=== PATIENT | male | born 1945 | race Caucasian/White ===

== ENCOUNTER 2020-12-30 12:00 | Emergency (ER) | payer BC, OTHER ==
[~2020-12-30] VITALS: Ht 177.8 cm; Wt 106.6 kg
[2020-12-30 13:48] LABS: Basophils # (auto) 0.1 10 ^3/uL (0-0.2); Basophils % (auto) 0.9 % (0.0-2.0); Eosinophils # (auto) 0.1 10 ^3/uL (0-0.8); Eosinophils % (auto) 1.4 % (0.0-7.0); Hematocrit 48.8 % (41.0-53.0); Hemoglobin 15.8 g/dL (13.5-17.5); Lymphocytes # (auto) 0.5 10 ^3/uL (0.4-5.4); Lymphocytes % (auto) 9.5 % (10.0-50.0); Mean Corpuscular Hemoglobin 30.8 pg (28.0-32.0); Mean Corpuscular Hgb Conc. 32.4 g/dL (32.0-36.0); Mean Corpuscular Volume 95.3 fL (80.0-100.0); Monocytes # (auto) 0.4 10 ^3/uL (0-1.3); Monocytes % (auto) 7.4 % (0.0-12.0); Neutrophils # (auto) 4.5 10 ^3/uL (1.6-8.6); Neutrophils % (auto) 80.8 % (37.0-80.0); Red Blood Cells 5.13 10^6/uL (4.5-5.90); Red Cell Distribution Width 14.3 % (11.8-14.3); White Blood Cell 5.5 10^3/uL (4.4-10.8)
[2020-12-30 13:49] LABS: Albumin 3.2 g/dL (3.4-5.0); Anion Gap 7 (5-15); Blood Urea Nitrogen 29 mg/dL (7-18); Calcium 8.3 mg/dL (8.5-10.1); Carbon Dioxide 26 mmol/L (21-32); Chloride 107 mmol/L (98-107); Glucose 102 mg/dL (74-106); Potassium 3.9 mmol/L (3.5-5.1); Sodium 140 mmol/L (136-145)
[2020-12-30 13:54] LABS: Alanine Aminotransferase 16 U/L (16-61); Alkaline Phosphatase 144 U/L (45-117); Aspartate Aminotransferase 13 U/L (15-37); BUN/Creatinine Ratio 22.7; GFR African American 71 mL/min; GFR Non-African American 58 mL/min; Total Protein 7.3 g/dL (6.4-8.2)
[2020-12-30] MEDS ORDERED: IOHEXOL 350 MG/ML 100ML IJ ONE ×2 (15:08→15:15)
[2020-12-30 18:24] VITALS: BP 147/77
== END 2020-12-30 19:00 | disposition home or self-care (01) ==
LOC: EDUNIT# 12:00 → EDBD 12:00 → ER 12:00
DX: I48.91 Unspecified atrial fibrillation (principal); E46 Unspecified protein-calorie malnutrition; I11.0 Hypertensive heart disease with heart failure; I50.9 Heart failure, unspecified; E11.9 Type 2 diabetes mellitus without complications; I25.10 Atherosclerotic heart disease of native coronary artery without angina pectoris; E03.9 Hypothyroidism, unspecified; Z68.33 Body mass index [BMI] 33.0-33.9, adult
CPT/HCPCS: 36415; 70450; 71045; 71275; 80053; 83880; 84484; 85025; 93005; 99291; Q9967

== ENCOUNTER 2022-03-08 08:10 | Inpatient (IN) | payer OTHER ==
[~2022-03-08] VITALS: Ht 182.9 cm; Wt 89.3 kg
[2022-03-08] MEDS ORDERED: METOPROLOL TARTRATE 1MG/1ML-5ML VIAL IV ONE (08:30)
[2022-03-08] MEDS ORDERED: FUROSEMIDE 40 MG/4 ML VIAL IV ONE (08:30)
[2022-03-08] MEDS ORDERED: ASPirin 81 mg TAB PO ONE ×2 (08:30→12:15)
[2022-03-08 08:49] LABS: Basophils # (auto) 0.1 10 ^3/uL (0-0.2); Nucleated Red Blood Cells % 0.1 %; Red Blood Cells 5.19 10^6/uL (4.5-5.90)
[2022-03-08 08:52] LABS: Basophils % (auto) 1.1 % (0.0-2.0); Eosinophils # (auto) 0.2 10 ^3/uL (0-0.8); Eosinophils % (auto) 1.2 % (0.0-7.0); Hematocrit 42.9 % (41.0-53.0); Hemoglobin 13.9 g/dL (13.5-17.5); Lymphocytes # (auto) 1.3 10 ^3/uL (0.4-5.4); Lymphocytes % (auto) 10.4 % (10.0-50.0); Mean Corpuscular Hemoglobin 26.7 pg (28.0-32.0); Mean Corpuscular Hgb Conc. 32.3 g/dL (32.0-36.0); Mean Corpuscular Volume 82.6 fL (80.0-100.0); Monocytes % (auto) 7.6 % (0.0-12.0); Neutrophils # (auto) 10.3 10 ^3/uL (1.6-8.6); Neutrophils % (auto) 79.7 % (37.0-80.0); Red Cell Distribution Width 17.5 % (11.8-14.3); White Blood Cell 12.9 10^3/uL (4.4-10.8)
[2022-03-08] MEDS ORDERED: levoFLOXacin 500MG 100 ML IV ONE (09:00)
[2022-03-08] MEDS ORDERED: methylPREDNISolone SOD SUCC 125 MG/2 ML VL IV ONE (09:00)
[2022-03-08 09:03] LABS: INR 1.09 (0.9-1.15); Partial Thromboplastin Time 32.8 sec (24.6-33.4)
[2022-03-08 10:26] LABS: Albumin 3.6 g/dL (3.4-5.0); Calcium 8.7 mg/dL (8.5-10.1); Magnesium 2.4 mg/dL (1.6-2.6); Potassium 4.3 mmol/L (3.5-5.1)
[2022-03-08 10:29] LABS: Lactic Acid w/Reflex 2.4 mmol/L (0.4-2.0)
[2022-03-08 10:30] LABS: BUN/Creatinine Ratio 27.9; Bilirubin, Total 0.5 mg/dL (0.2-1.0); Total Protein 7.7 g/dL (6.4-8.2)
[2022-03-08] MEDS ORDERED: ALBUTEROL SULF 2.5 MG/0.5ML(0.5%) NEB SOLN NEB PRN (11:30)
[2022-03-08] MEDS ORDERED: MORPHINE SULFATE 4 MG/ML SYR/VIAL IV PRN (11:30)
[2022-03-08] MEDS ORDERED: NITROGLYCERIN 0.4 MG SL TAB SL PRN (11:30)
[2022-03-08] MEDS ORDERED: ONDANSETRON HCL 4 MG/2 ML VIAL IV PRN (11:30)
[2022-03-08] MEDS ORDERED: ACETAMINOPHEN 325 MG TAB PO PRN (11:30)
[2022-03-08 12:46] LABS: Urine Bacteria NONE SEEN /hpf (None Seen); Urine Blood Negative /uL (Negative); Urine Hyaline Cast FEW /lpf (0 - 2); Urine Mucus FEW (None Seen); Urine Specific Gravity 1.008 (1.001-1.035); Urine WBC <1 /hpf (0 - 3)
[2022-03-08 14:01] VITALS: BP 124/85
[2022-03-08] MEDS ORDERED: ALL100T PO (15:20)
[2022-03-08] MEDS ORDERED: AMIO200T33 PO (15:20)
[2022-03-08] MEDS ORDERED: METO25TA93 PO (15:30)
[2022-03-08] MEDS ORDERED: CITA-73 PO (15:30)
[2022-03-08] MEDS ORDERED: BUPR150T18 PO (15:30)
[2022-03-08] MEDS ORDERED: LEVO200I5 IV (15:30)
[2022-03-08] MEDS ORDERED: FURO40TA4 PO (15:31)
[2022-03-08] MEDS ORDERED: AMIODARONE HCL 150 MG in D5W 5% 100 ML IV ONE (16:15)
[2022-03-08] MEDS ORDERED: AMIODARONE 450mg/250ml AE 250 ML IV SCH (16:30)
[2022-03-08] MEDS ORDERED: LEVOTHYROXINE SODIUM 100 MCG TAB PO ONE (17:15)
[2022-03-08] MEDS ORDERED: ATORVASTATIN 20 MG TAB PO ONE (17:15)
[2022-03-08] MEDS ORDERED: HEPARIN SODIUM (PORCINE) 5000 UNITS/ML 1ML VIAL IV ONE (17:30)
[2022-03-08] MEDS ORDERED: HEPARIN DRIP/D5W 100UNITS/ML 250 ML IV SCH (17:31)
[2022-03-08 18:31] LABS: Basophils # (auto) 0 10 ^3/uL (0-0.2); Eosinophils # (auto) 0.1 10 ^3/uL (0-0.8); Eosinophils % (auto) 1.5 % (0.0-7.0); Hematocrit 41.5 % (41.0-53.0); Hemoglobin 13.3 g/dL (13.5-17.5); Lymphocytes # (auto) 0.3 10 ^3/uL (0.4-5.4); Lymphocytes % (auto) 4.4 % (10.0-50.0); Mean Corpuscular Hemoglobin 26.6 pg (28.0-32.0); Mean Corpuscular Volume 82.9 fL (80.0-100.0); Monocytes # (auto) 0.1 10 ^3/uL (0-1.3); Neutrophils # (auto) 7.1 10 ^3/uL (1.6-8.6); Neutrophils % (auto) 93.1 % (37.0-80.0); Red Blood Cells 5.01 10^6/uL (4.5-5.90); Red Cell Distribution Width 17.6 % (11.8-14.3); White Blood Cell 7.7 10^3/uL (4.4-10.8)
[2022-03-08 18:59] LABS: INR 1.54 (0.9-1.15)
[2022-03-08 19:06] LABS: Partial Thromboplastin Time > 139.0 sec (24.6-33.4)
[2022-03-08] MEDS ORDERED: ENOXAPARIN SOD 100 MG/1 ML SYRINGE SC SCH (22:00)
[2022-03-08] MEDS: METOPROLOL TARTRATE 25 MG TAB PO SCH (22:15)
[2022-03-08] MEDS: ATORVASTATIN 20 MG TAB PO SCH (22:15)
[2022-03-08] MEDS: AMIODARONE 450mg/250ml AE 250 ML IV SCH (22:45)
[2022-03-09 01:53] LABS: INR 1.13 (0.9-1.15); Partial Thromboplastin Time 39.7 sec (24.6-33.4)
[2022-03-09 05:30] LABS: Eosinophils # (auto) 0 10 ^3/uL (0-0.8); Lymphocytes # (auto) 0.5 10 ^3/uL (0.4-5.4); Mean Corpuscular Volume 81.9 fL (80.0-100.0); Monocytes # (auto) 0.4 10 ^3/uL (0-1.3)
[2022-03-09 05:32] LABS: Basophils # (auto) 0 10 ^3/uL (0-0.2); Basophils % (auto) 0.2 % (0.0-2.0); Hematocrit 42.1 % (41.0-53.0); Hemoglobin 13.5 g/dL (13.5-17.5); Lymphocytes % (auto) 3.9 % (10.0-50.0); Mean Corpuscular Hemoglobin 26.2 pg (28.0-32.0); Monocytes % (auto) 2.8 % (0.0-12.0); Neutrophils # (auto) 12.4 10 ^3/uL (1.6-8.6); Neutrophils % (auto) 93.1 % (37.0-80.0); Red Blood Cells 5.14 10^6/uL (4.5-5.90); Red Cell Distribution Width 17.3 % (11.8-14.3); White Blood Cell 13.3 10^3/uL (4.4-10.8)
[2022-03-09 05:39] LABS: BUN/Creatinine Ratio 28.1; Potassium 4.1 mmol/L (3.5-5.1)
[2022-03-09] MEDS ORDERED: LEVOTHYROXINE SODIUM 100 MCG TAB PO SCH (07:00)
[2022-03-09] MEDS: BUPROPION HCL PO SCH (09:16)
[2022-03-09 09:27] LABS: INR 1.1 (0.9-1.15)
[2022-03-09] MEDS ORDERED: levoFLOXacin 500MG 100 ML IV SCH (10:00)
[2022-03-09] MEDS: ASPirin 81 mg TAB PO SCH (10:00)
[2022-03-09] MEDS: CITALOPRAM HYDROBR 20 MG TAB PO SCH (10:15)
[2022-03-09] MEDS: FUROSEMIDE 20 MG/2 ML VIAL IV SCH (10:15)
[2022-03-09] MEDS: METOPROLOL TARTRATE 25 MG TAB PO SCH ×2 (10:15→22:55)
[2022-03-09] MEDS: DOCUSATE SOD 100 MG CAP PO SCH (10:15)
[2022-03-09] MEDS: ALLOPURINOL 100 MG TAB PO SCH (10:18)
[2022-03-09] MEDS: AMIODARONE 450mg/250ml AE 250 ML IV SCH (14:05)
[2022-03-09 15:07] LABS: INR 1.14 (0.9-1.15); Partial Thromboplastin Time 44.5 sec (24.6-33.4)
[2022-03-09] MEDS: HEPARIN DRIP/D5W 100UNITS/ML 250 ML IV SCH (16:00)
[2022-03-09] MEDS: LORazepam 0.5 MG TAB PO PRN (20:13)
[2022-03-09 21:37] LABS: INR 1.14 (0.9-1.15); Partial Thromboplastin Time 53.2 sec (24.6-33.4)
[2022-03-09] MEDS: ATORVASTATIN 20 MG TAB PO SCH (22:55)
[2022-03-10 03:07] LABS: Basophils # (auto) 0 10 ^3/uL (0-0.2); Eosinophils # (auto) 0 10 ^3/uL (0-0.8)
[2022-03-10 03:15] LABS: Basophils % (auto) 0.3 % (0.0-2.0); Eosinophils % (auto) 0.1 % (0.0-7.0); Mean Corpuscular Volume 82.1 fL (80.0-100.0)
[2022-03-10 03:17] LABS: Hematocrit 40.7 % (41.0-53.0); Hemoglobin 12.9 g/dL (13.5-17.5); Lymphocytes # (auto) 1.1 10 ^3/uL (0.4-5.4); Lymphocytes % (auto) 7.4 % (10.0-50.0); Mean Corpuscular Hgb Conc. 31.6 g/dL (32.0-36.0); Monocytes % (auto) 6.7 % (0.0-12.0); Neutrophils # (auto) 12.7 10 ^3/uL (1.6-8.6); Neutrophils % (auto) 85.5 % (37.0-80.0); Red Blood Cells 4.96 10^6/uL (4.5-5.90); Red Cell Distribution Width 17.5 % (11.8-14.3); White Blood Cell 14.9 10^3/uL (4.4-10.8)
[2022-03-10 03:20] LABS: Calcium 8.6 mg/dL (8.5-10.1); INR 1.16 (0.9-1.15); Partial Thromboplastin Time 55.2 sec (24.6-33.4); Potassium 4.1 mmol/L (3.5-5.1)
[2022-03-10] MEDS: AMIODARONE 450mg/250ml AE 250 ML IV SCH ×2 (04:30→19:30)
[2022-03-10] MEDS: LEVOTHYROXINE SODIUM 100 MCG TAB PO SCH (07:08)
[2022-03-10] MEDS: BUPROPION HCL PO SCH (09:00)
[2022-03-10 09:25] LABS: INR 1.16 (0.9-1.15); Partial Thromboplastin Time 68.6 sec (24.6-33.4)
[2022-03-10] MEDS: ASPirin 81 mg TAB PO SCH (10:00)
[2022-03-10] MEDS: DOCUSATE SOD 100 MG CAP PO SCH (10:41)
[2022-03-10] MEDS: CITALOPRAM HYDROBR 20 MG TAB PO SCH (10:41)
[2022-03-10] MEDS: DOXYCYCLINE 100 MG TAB/CAP PO SCH (10:42)
[2022-03-10] MEDS: ALLOPURINOL 100 MG TAB PO SCH (10:42)
[2022-03-10] MEDS: METOPROLOL TARTRATE 25 MG TAB PO SCH (10:45)
[2022-03-10] MEDS: FUROSEMIDE 20 MG/2 ML VIAL IV SCH (10:45)
[2022-03-10] MEDS: CEFTRIAXONE SODIUM 2 GM in D5W 5% 50 ML IV SCH (12:41)
[2022-03-10] MEDS: HEPARIN DRIP/D5W 100UNITS/ML 250 ML IV SCH (18:29)
[2022-03-11] MEDS: DOXYCYCLINE 100 MG TAB/CAP PO SCH ×3 (00:34→22:35)
[2022-03-11] MEDS: ATORVASTATIN 20 MG TAB PO SCH ×2 (00:34→22:34)
[2022-03-11] MEDS: METOPROLOL TARTRATE 25 MG TAB PO SCH ×3 (00:37→22:34)
[2022-03-11] MEDS: AMIODARONE HCL 200 MG TAB PO SCH ×3 (00:37→22:33)
[2022-03-11] MEDS: HEPARIN DRIP/D5W 100UNITS/ML 250 ML IV SCH (00:57)
[2022-03-11] MEDS: AMIODARONE 450mg/250ml AE 250 ML IV SCH (02:13)
[2022-03-11 06:45] LABS: Basophils # (auto) 0 10 ^3/uL (0-0.2); Eosinophils # (auto) 0.1 10 ^3/uL (0-0.8); Eosinophils % (auto) 0.7 % (0.0-7.0); Lymphocytes # (auto) 0.8 10 ^3/uL (0.4-5.4); Monocytes # (auto) 0.8 10 ^3/uL (0-1.3); Neutrophils # (auto) 8.3 10 ^3/uL (1.6-8.6)
[2022-03-11 06:47] LABS: Basophils % (auto) 0.2 % (0.0-2.0); Hematocrit 42.1 % (41.0-53.0); Hemoglobin 13.3 g/dL (13.5-17.5); Lymphocytes % (auto) 8.4 % (10.0-50.0); Mean Corpuscular Hgb Conc. 31.7 g/dL (32.0-36.0); Mean Corpuscular Volume 81.9 fL (80.0-100.0); Monocytes % (auto) 8.2 % (0.0-12.0); Neutrophils % (auto) 82.5 % (37.0-80.0); Red Blood Cells 5.14 10^6/uL (4.5-5.90); Red Cell Distribution Width 17.7 % (11.8-14.3)
[2022-03-11 06:52] LABS: INR 1.18 (0.9-1.15); Partial Thromboplastin Time 57.9 sec (24.6-33.4)
[2022-03-11 07:45] LABS: Potassium 3.9 mmol/L (3.5-5.1)
[2022-03-11] MEDS: BUPROPION HCL PO SCH (07:45)
[2022-03-11] MEDS: LEVOTHYROXINE SODIUM 100 MCG TAB PO SCH (07:57)
[2022-03-11 08:03] LABS: Albumin 3.1 g/dL (3.4-5.0); BUN/Creatinine Ratio 34.1; Bilirubin, Total 0.7 mg/dL (0.2-1.0); Calcium 8.9 mg/dL (8.5-10.1); Magnesium 2.4 mg/dL (1.6-2.6); Total Protein 7.5 g/dL (6.4-8.2)
[2022-03-11] MEDS: DOCUSATE SOD 100 MG CAP PO SCH (10:03)
[2022-03-11] MEDS: ALLOPURINOL 100 MG TAB PO SCH (10:03)
[2022-03-11] MEDS: CITALOPRAM HYDROBR 20 MG TAB PO SCH (10:03)
[2022-03-11] MEDS: ASPirin 81 mg TAB PO SCH (10:03)
[2022-03-11] MEDS: FUROSEMIDE 20 MG/2 ML VIAL IV SCH (10:04)
[2022-03-11 10:17] VITALS: BP 148/59
[2022-03-11] MEDS: CEFTRIAXONE SODIUM 2 GM in D5W 5% 50 ML IV SCH (10:49)
[2022-03-11 18:18] VITALS: BP 127/66
[2022-03-11 22:00] VITALS: BP 125/62
[2022-03-11] MEDS: LORazepam 0.5 MG TAB PO PRN (22:33)
[2022-03-12 00:30] VITALS: BP 108/66
[2022-03-12 05:00] VITALS: BP 118/67
[2022-03-12] MEDS: BUPROPION HCL PO SCH (07:00)
[2022-03-12] MEDS: LEVOTHYROXINE SODIUM 100 MCG TAB PO SCH (07:00)
[2022-03-12 09:00] VITALS: BP 129/72
[2022-03-12] MEDS: FUROSEMIDE 20 MG/2 ML VIAL IV SCH (09:21)
[2022-03-12] MEDS: DOXYCYCLINE 100 MG TAB/CAP PO SCH (09:22)
[2022-03-12] MEDS: ASPirin 81 mg TAB PO SCH (09:22)
[2022-03-12] MEDS: METOPROLOL TARTRATE 25 MG TAB PO SCH (09:22)
[2022-03-12] MEDS: CEFTRIAXONE SODIUM 2 GM in D5W 5% 50 ML IV SCH (09:22)
[2022-03-12] MEDS: DOCUSATE SOD 100 MG CAP PO SCH (09:23)
[2022-03-12] MEDS: ALLOPURINOL 100 MG TAB PO SCH (09:23)
[2022-03-12] MEDS: CITALOPRAM HYDROBR 20 MG TAB PO SCH (09:23)
[2022-03-12] MEDS: AMIODARONE HCL 200 MG TAB PO SCH (09:23)
[2022-03-12] MEDS ORDERED: LIDOCAINE 2%HCL (LOCAL ANESTH.) INJ 10ml MDV ONE (10:47)
[2022-03-12] MEDS ORDERED: IODIXANOL 320MG/ML 100ML BTL IV ONE (10:47)
[2022-03-12] MEDS ORDERED: ANGIOMAX 250 MG VIAL IV ONE (11:18)
[2022-03-12] MEDS ORDERED: fentaNYL CITRATE 100 MCG/2 ML VL ONE (11:18)
[2022-03-12] MEDS ORDERED: VERAPAMIL 2.5MG/ML INJ 2ML VIAL IV ONE (11:18)
[2022-03-12] MEDS ORDERED: HEPARIN SODIUM (PORCINE) 5000 UNITS/ML 1ML VIAL ONE (11:18)
[2022-03-12] MEDS ORDERED: MIDAZOLAM HCL 2MG/2ML 2ml VIAL (1mg/ml) ONE (11:19)
[2022-03-12] MEDS ORDERED: SODIUM CHL 0.9% 0 ML ONE (11:19)
[2022-03-12] MEDS ORDERED: LEVO200T7 PO (12:47)
[2022-03-12] MEDS ORDERED: APIX5TAB PO (12:47)
[2022-03-12] MEDS ORDERED: MET25T PO (12:47)
[2022-03-12] MEDS ORDERED: DOX100T PO (12:47)
[2022-03-12] MEDS ORDERED: ASPI-325 PO (12:47)
[2022-03-12] MEDS ORDERED: AMIO200T33 PO (12:47)
[2022-03-14] MEDS ORDERED: APIX5TAB PO (08:27)
[2022-03-14] MEDS ORDERED: ERGO1CAP23 PO (14:09)
[2022-03-14] MEDS ORDERED: CYAN1TAB14 PO (14:09)
== END 2022-03-12 15:50 | disposition home or self-care (01) | DRG 871 ==
LOC: ER 08:10 → TELE 11:27 → TELE-CENTR 03-11 17:40
PROVIDERS: ADMIT Nurse Practitioner Family; ATTEND Internal Medicine
PROC: B211YZZ Fluoroscopy of Multiple Coronary Arteries using Other Contrast (ICD-10-PCS; principal; 2022-03-12)
DX: A41.9 Sepsis, unspecified organism (principal); I21.A1 Myocardial infarction type 2; I50.43 Acute on chronic combined systolic (congestive) and diastolic (congestive) heart failure; J96.01 Acute respiratory failure with hypoxia; U07.1 COVID-19; I47.20 Ventricular tachycardia, unspecified; I13.0 Hypertensive heart and chronic kidney disease with heart failure and stage 1 through stage 4 chronic kidney disease, or unspecified chronic kidney disease; N17.9 Acute kidney failure, unspecified; D68.69 Other thrombophilia; I25.10 Atherosclerotic heart disease of native coronary artery without angina pectoris; F32.A Depression, unspecified; M10.9 Gout, unspecified; N18.9 Chronic kidney disease, unspecified; E03.9 Hypothyroidism, unspecified; I48.91 Unspecified atrial fibrillation; E11.22 Type 2 diabetes mellitus with diabetic chronic kidney disease; I25.2 Old myocardial infarction; Z79.899 Other long term (current) drug therapy; Z82.49 Family history of ischemic heart disease and other diseases of the circulatory system; Z83.3 Family history of diabetes mellitus; Z86.711 Personal history of pulmonary embolism; Z98.61 Coronary angioplasty status; Z87.01 Personal history of pneumonia (recurrent)
CPT/HCPCS: 36415; 36600; 71045; 71250; 80048; 80053; 80061; 81001; 82805; 83036; 83605; 83735; 83880; 84100; 84439; 84443; 84484; 85025; 85379; 85610; 85652; 85730; 86141; 87040; 87426; 87804; 93005; 93306; 96374; 96375; 99152; 99291; G0378; J0696; J1956; J2001; J2250; J7060; Q9967

== ENCOUNTER → 2022-04-18 | Outpatient (CLI) | payer OTHER ==
[~2022-04-18] MED LIST: ALL100T PO; AMIO200T33 PO; APIX5TAB PO; ASPI-325 PO; BUPR150T18 PO; CITA-73 PO; CYAN1TAB14 PO; DOX100T PO; ERGO1CAP23 PO; FURO40TA4 PO; LEVO200I5 IV; LEVO200T7 PO; MET25T PO; METO25TA93 PO
[2022-04-18 10:52] LABS: BUN/Creatinine Ratio 24.8; Calcium 8.8 mg/dL (8.5-10.1); Potassium 5.1 mmol/L (3.5-5.1)
== END | disposition home or self-care (01) ==
LOC: LAB 10:16
PROVIDERS: ATTEND Internal Medicine
DX: Z01.818 Encounter for other preprocedural examination (principal); I70.0 Atherosclerosis of aorta; J98.11 Atelectasis; I51.7 Cardiomegaly; R06.02 Shortness of breath
CPT/HCPCS: 36415; 71275; 80048

== ENCOUNTER → 2022-04-25 | Outpatient (CLI) | payer OTHER ==
[2022-04-25 10:51] LABS: Calcium 8.8 mg/dL (8.5-10.1); Potassium 4.6 mmol/L (3.5-5.1)
[2022-04-25 10:55] LABS: BUN/Creatinine Ratio 25.6
[2022-04-25 11:00] LABS: Folate (Folic Acid) 16.84 ng/mL (5.38-24); Prostate Specific Antigen 1.3 ng/mL (0.0-4.0)
[2022-04-26 08:07] LABS: RPR Non Reactive (Non Reactive)
== END | disposition home or self-care (01) ==
LOC: LAB 09:45
PROVIDERS: ATTEND Internal Medicine
DX: E03.9 Hypothyroidism, unspecified (principal)
CPT/HCPCS: 36415; 80048; 82607; 82746; 84153; 86592

== ENCOUNTER → 2022-06-12 | Outpatient (CLI) | payer OTHER ==
[~2022-06-12] MED LIST changes: +ASPI1TAB19 PO; +CITA-77 PO; +CLOP75TA28 PO; +CYAN100056 PO; +LEVO125T7 PO; +LEVO175T66 PO; +POTA10TA51 PO
[2022-06-12 10:26] LABS: Basophils # (auto) 0.1 10 ^3/uL (0-0.2); Eosinophils # (auto) 0.2 10 ^3/uL (0-0.8); Lymphocytes # (auto) 0.8 10 ^3/uL (0.4-5.4); Monocytes # (auto) 0.3 10 ^3/uL (0-1.3); Neutrophils # (auto) 5.2 10 ^3/uL (1.6-8.6); Nucleated Red Blood Cells % 0.2 %; White Blood Cell 6.5 10^3/uL (4.4-10.8)
[2022-06-12 10:29] LABS: Basophils % (auto) 1.3 % (0.0-2.0); Eosinophils % (auto) 2.6 % (0.0-7.0); Hematocrit 40.9 % (41.0-53.0); Lymphocytes % (auto) 11.7 % (10.0-50.0); Mean Corpuscular Hemoglobin 23.7 pg (28.0-32.0); Mean Corpuscular Hgb Conc. 31.7 g/dL (32.0-36.0); Mean Corpuscular Volume 74.6 fL (80.0-100.0); Monocytes % (auto) 4.7 % (0.0-12.0); Neutrophils % (auto) 79.7 % (37.0-80.0); Red Blood Cells 5.48 10^6/uL (4.5-5.90); Red Cell Distribution Width 17.7 % (11.8-14.3)
[2022-06-12 10:34] LABS: INR 1.08 (0.9-1.15); Partial Thromboplastin Time 32.3 sec (24.6-33.4)
[2022-06-12 10:36] LABS: Albumin 3.6 g/dL (3.4-5.0); Calcium 8.8 mg/dL (8.5-10.1); Potassium 4.4 mmol/L (3.5-5.1)
[2022-06-12 10:39] LABS: BUN/Creatinine Ratio 24.3 (10.0-20.0); Bilirubin, Total 0.4 mg/dL (0.2-1.0)
== END | disposition home or self-care (01) ==
LOC: LAB 09:56
PROVIDERS: ATTEND Internal Medicine Cardiovascular Disease
DX: Z01.812 Encounter for preprocedural laboratory examination (principal); R79.1 Abnormal coagulation profile
CPT/HCPCS: 36415; 80053; 85025; 85610; 85730

== ENCOUNTER → 2022-06-12 | Outpatient (CLI) | payer OTHER ==
[2022-06-12 09:05] VITALS: BP 145/70
[2022-06-12 09:24] VITALS: BP 146/70
== END | disposition home or self-care (01) ==
LOC: CHF HDHVI 09:00
PROVIDERS: ATTEND Internal Medicine Cardiovascular Disease
DX: Z01.818 Encounter for other preprocedural examination (principal); R94.31 Abnormal electrocardiogram [ECG] [EKG]; I51.7 Cardiomegaly; R06.02 Shortness of breath; R00.1 Bradycardia, unspecified; I27.21 Secondary pulmonary arterial hypertension
CPT/HCPCS: 93005; G0463

== ENCOUNTER → 2022-06-13 | Day surgery (SDC) | payer OTHER ==
[~2022-06-13] VITALS: Ht 182.9 cm; Wt 86.2 kg
[~2022-06-13] MED LIST changes: +ANGIOMAX 250 MG VIAL IV ONE; +CLOPIDOGREL 300 MG TAB ONE; -LEVO200I5 IV; +LIDOCAINE 2%HCL (LOCAL ANESTH.) INJ 20ML MDV ONE; -MET25T PO; +MIDAZOLAM HCL 2MG/2ML 2ml VIAL (1mg/ml) ONE; +SODIUM CHL 0.9% 0 ML ONE; +fentaNYL CITRATE 100 MCG/2 ML VL ONE
== END | disposition home or self-care (01) ==
LOC: CATH 09:09
PROVIDERS: ATTEND Internal Medicine Cardiovascular Disease
DX: I25.10 Atherosclerotic heart disease of native coronary artery without angina pectoris (principal); I25.5 Ischemic cardiomyopathy; I27.20 Pulmonary hypertension, unspecified; I48.0 Paroxysmal atrial fibrillation; F32.A Depression, unspecified; Z80.9 Family history of malignant neoplasm, unspecified; Z83.6 Family history of other diseases of the respiratory system; Z79.82 Long term (current) use of aspirin; Z79.899 Other long term (current) drug therapy; Z20.822 Contact with and (suspected) exposure to COVID-19
CPT/HCPCS: 93460; C1757; C1769; C1894; J1644; J2250; J3010; J7030; U0003; 99152; 99153

== ENCOUNTER → 2022-07-15 | Outpatient (CLI) | payer OTHER ==
[~2022-07-15] MED LIST changes: -ANGIOMAX 250 MG VIAL IV ONE; -ASPI-325 PO; -CITA-73 PO; -CLOPIDOGREL 300 MG TAB ONE; -CYAN1TAB14 PO; -DOX100T PO; -LEVO125T7 PO; -LEVO200T7 PO; -LIDOCAINE 2%HCL (LOCAL ANESTH.) INJ 20ML MDV ONE; -MIDAZOLAM HCL 2MG/2ML 2ml VIAL (1mg/ml) ONE; -SODIUM CHL 0.9% 0 ML ONE; -fentaNYL CITRATE 100 MCG/2 ML VL ONE
[2022-07-15 08:30] VITALS: BP 130/67
== END | disposition home or self-care (01) ==
LOC: Rad HDHVI 08:15
PROVIDERS: ATTEND Internal Medicine Cardiovascular Disease
DX: I11.0 Hypertensive heart disease with heart failure (principal); I50.22 Chronic systolic (congestive) heart failure; I27.20 Pulmonary hypertension, unspecified; I48.0 Paroxysmal atrial fibrillation; I70.0 Atherosclerosis of aorta
CPT/HCPCS: 71046; G0463

== ENCOUNTER 2022-07-18 06:49 | Day surgery (SDC) | payer OTHER ==
[2022-07-15 09:31] LABS: Eosinophils # (auto) 0.1 10 ^3/uL (0-0.8); Hemoglobin 10.9 g/dL (13.5-17.5); Lymphocytes # (auto) 0.6 10 ^3/uL (0.4-5.4); White Blood Cell 7.3 10^3/uL (4.4-10.8)
[2022-07-15 09:34] LABS: Basophils # (auto) 0 10 ^3/uL (0-0.2); Basophils % (auto) 0.5 % (0.0-2.0); Eosinophils % (auto) 0.9 % (0.0-7.0); Hematocrit 36.5 % (41.0-53.0); Lymphocytes % (auto) 8.3 % (10.0-50.0); Mean Corpuscular Hemoglobin 22.6 pg (28.0-32.0); Mean Corpuscular Volume 75.3 fL (80.0-100.0); Monocytes # (auto) 0.6 10 ^3/uL (0-1.3); Monocytes % (auto) 8.1 % (0.0-12.0); Neutrophils % (auto) 82.2 % (37.0-80.0); Red Blood Cells 4.85 10^6/uL (4.5-5.90)
[2022-07-15 09:43] LABS: INR 1.15 (0.9-1.15); Partial Thromboplastin Time 35.3 sec (24.6-33.4)
[2022-07-15 09:59] LABS: Calcium 8.5 mg/dL (8.5-10.1)
[2022-07-15 10:01] LABS: BUN/Creatinine Ratio 22.6 (10.0-20.0)
[~2022-07-18] VITALS: Ht 182.9 cm; Wt 85.7 kg
[~2022-07-18 06:49] MED LIST changes: -ASPI1TAB19 PO; -CLOP75TA28 PO; -CYAN100056 PO
[2022-07-18] MEDS ORDERED: fentaNYL CITRATE 100 MCG/2 ML VL IV ONE (08:00)
[2022-07-18] MEDS ORDERED: MIDAZOLAM HCL 2MG/2ML 2ml VIAL (1mg/ml) IV ONE (08:00)
[2022-07-18 10:12] VITALS: BP 136/95
== END 2022-07-18 11:25 | disposition home or self-care (01) ==
LOC: CATH 06:49
PROVIDERS: ATTEND Internal Medicine Cardiovascular Disease
DX: I08.0 Rheumatic disorders of both mitral and aortic valves (principal); I48.0 Paroxysmal atrial fibrillation
CPT/HCPCS: 36415; 80048; 85025; 85610; 85730; 93312; J2250; J7030; 99152

== ENCOUNTER → 2022-08-28 | Outpatient (CLI) | payer OTHER ==
[~2022-08-28] MED LIST changes: +LEVO175T4 PO; -LEVO175T66 PO
[2022-08-28 08:11] VITALS: BP 158/74
[2022-08-28 08:27] VITALS: BP 138/63
== END | disposition home or self-care (01) ==
LOC: Rad HDHVI 08:01
PROVIDERS: ATTEND Internal Medicine Cardiovascular Disease
DX: Z01.818 Encounter for other preprocedural examination (principal); I11.0 Hypertensive heart disease with heart failure; I50.23 Acute on chronic systolic (congestive) heart failure; I08.0 Rheumatic disorders of both mitral and aortic valves; I48.91 Unspecified atrial fibrillation
CPT/HCPCS: 71046; 93005; G0463

== ENCOUNTER 2022-08-29 06:51 | Day surgery (SDC) | payer OTHER ==
[2022-08-28 09:36] LABS: INR 1.15 (0.9-1.15); Partial Thromboplastin Time 34.2 sec (24.6-33.4)
[2022-08-28 09:59] LABS: Albumin 3.5 g/dL (3.4-5.0); BUN/Creatinine Ratio 23.4 (10.0-20.0); Calcium 8.6 mg/dL (8.5-10.1)
[2022-08-28 10:02] LABS: Bilirubin, Total 0.5 mg/dL (0.2-1.0); Total Protein 7.3 g/dL (6.4-8.2)
[2022-08-28 12:15] LABS: Basophils # (auto) 0 10 ^3/uL (0-0.2); Basophils % (auto) 0.7 % (0.0-2.0); Hemoglobin 11.4 g/dL (13.5-17.5); Lymphocytes # (auto) 0.8 10 ^3/uL (0.4-5.4); Neutrophils # (auto) 5.3 10 ^3/uL (1.6-8.6)
[2022-08-28 12:17] LABS: Eosinophils # (auto) 0.2 10 ^3/uL (0-0.8); Eosinophils % (auto) 2.2 % (0.0-7.0); Hematocrit 37.9 % (41.0-53.0); Lymphocytes % (auto) 11.5 % (10.0-50.0); Mean Corpuscular Hemoglobin 22.1 pg (28.0-32.0); Mean Corpuscular Hgb Conc. 30.1 g/dL (32.0-36.0); Mean Corpuscular Volume 73.5 fL (80.0-100.0); Monocytes # (auto) 0.5 10 ^3/uL (0-1.3); Monocytes % (auto) 6.8 % (0.0-12.0); Neutrophils % (auto) 78.8 % (37.0-80.0); Nucleated Red Blood Cells % 0.1 %; Red Blood Cells 5.16 10^6/uL (4.5-5.90); Red Cell Distribution Width 18.6 % (11.8-14.3); White Blood Cell 6.7 10^3/uL (4.4-10.8)
[~2022-08-29] VITALS: Ht 182.9 cm; Wt 88.0 kg
[~2022-08-29 06:51] MED LIST changes: -ERGO1CAP23 PO
[2022-08-29] MEDS ORDERED: ANGIOMAX 250 MG VIAL IV ONE ×2 (08:16→10:23)
[2022-08-29] MEDS ORDERED: fentaNYL CITRATE 100 MCG/2 ML VL ONE ×2 (08:17→10:23)
[2022-08-29] MEDS ORDERED: HEPARIN IN NS 1000Units/500mL 1,500 ML ONE (08:18)
[2022-08-29] MEDS ORDERED: IOHEXOL 350 MG/ML 500ML BOTTLE IJ ONE ×2 (08:18→08:19)
[2022-08-29] MEDS ORDERED: SODIUM CHL 0.9% 0 ML ONE (08:18)
[2022-08-29] MEDS ORDERED: MIDAZOLAM HCL 2MG/2ML 2ml VIAL (1mg/ml) ONE ×2 (08:18→10:24)
[2022-08-29] MEDS ORDERED: LIDOCAINE 2%HCL (LOCAL ANESTH.) INJ 20ML MDV ONE (08:19)
[2022-08-29] MEDS ORDERED: IODIXANOL 320MG/ML 100ML BTL IV ONE (09:05)
[2022-08-29] MEDS ORDERED: CLOPIDOGREL 300 MG TAB ONE (09:55)
[2022-08-29] MEDS ORDERED: SODIUM CHL 0.9% 50 ML ONE (10:24)
== END 2022-08-29 11:48 | disposition home or self-care (01) ==
LOC: CATH 06:51
PROVIDERS: ATTEND Internal Medicine Cardiovascular Disease
DX: I25.10 Atherosclerotic heart disease of native coronary artery without angina pectoris (principal); I08.0 Rheumatic disorders of both mitral and aortic valves; I27.20 Pulmonary hypertension, unspecified; I50.1 Left ventricular failure, unspecified; I25.5 Ischemic cardiomyopathy; I48.91 Unspecified atrial fibrillation; Z79.01 Long term (current) use of anticoagulants; Z79.82 Long term (current) use of aspirin; E03.9 Hypothyroidism, unspecified
CPT/HCPCS: 36415; 80053; 85025; 85610; 85730; 92978; 93460; C1725; C1757; C1874; C1887; C1894; C9600; J0583; J1644; J2250; J3010; Q9967; 99152; 99153

== ENCOUNTER → 2022-09-23 | Outpatient (CLI) | payer OTHER ==
[2022-09-23 08:57] VITALS: BP 144/69
[2022-09-23 09:20] VITALS: BP 146/71
== END | disposition home or self-care (01) ==
LOC: Rad HDHVI 08:48
PROVIDERS: ATTEND Internal Medicine Cardiovascular Disease
DX: Z01.818 Encounter for other preprocedural examination (principal); I70.0 Atherosclerosis of aorta; I34.2 Nonrheumatic mitral (valve) stenosis; R06.01 Orthopnea; R07.89 Other chest pain
CPT/HCPCS: 71046; 93005; G0463

== ENCOUNTER 2022-10-05 21:39 | Inpatient (IN) | payer OTHER ==
[~2022-10-05] VITALS: Ht 185.4 cm; Wt 82.8 kg
[~2022-10-05 21:39] MED LIST changes: +ASPI-325 PO; +ATOR20TA50 PO; +CLOP75TA70 NG
[2022-10-05 22:10] VITALS: PULSE 70; RESP 20; O2SAT 96
[2022-10-05 23:07] LABS: Basophils # (auto) 0 10 ^3/uL (0-0.2); Eosinophils # (auto) 0.1 10 ^3/uL (0-0.8); Eosinophils % (auto) 0.7 % (0.0-7.0); Hematocrit 30.9 % (41.0-53.0); Lymphocytes # (auto) 0.5 10 ^3/uL (0.4-5.4)
[2022-10-05 23:09] LABS: Albumin 2.6 g/dL (3.4-5.0); Basophils % (auto) 0.2 % (0.0-2.0); Calcium 7.7 mg/dL (8.5-10.1); Hemoglobin 9.2 g/dL (13.5-17.5); Lymphocytes % (auto) 5.5 % (10.0-50.0); Magnesium 2.6 mg/dL (1.6-2.6); Mean Corpuscular Hemoglobin 21.4 pg (28.0-32.0); Mean Corpuscular Hgb Conc. 29.7 g/dL (32.0-36.0); Mean Corpuscular Volume 72.1 fL (80.0-100.0); Monocytes # (auto) 0.6 10 ^3/uL (0-1.3); Monocytes % (auto) 6.6 % (0.0-12.0); Neutrophils # (auto) 8.3 10 ^3/uL (1.6-8.6); Nucleated Red Blood Cells % 0.3 %; Potassium 3.8 mmol/L (3.5-5.1); Red Blood Cells 4.28 10^6/uL (4.5-5.90); Red Cell Distribution Width 19.5 % (11.8-14.3); White Blood Cell 9.6 10^3/uL (4.4-10.8)
[2022-10-05 23:12] LABS: BUN/Creatinine Ratio 24.7 (10.0-20.0); Bilirubin, Total 0.7 mg/dL (0.2-1.0); Total Protein 5.9 g/dL (6.4-8.2)
[2022-10-06] MEDS ORDERED: ALBUMIN 25% 100 ML IV ONE (01:30)
[2022-10-06] MEDS ORDERED: NITROGLYCERIN 0.4 MG SL TAB SL ONE (01:30)
[2022-10-06] MEDS ORDERED: PANTOPRAZOLE 40 MG/10 ML VIAL INJ IV ONE (01:30)
[2022-10-06] MEDS ORDERED: ONDANSETRON HCL 4 MG/2 ML VIAL IV ONE (01:30)
[2022-10-06] MEDS ORDERED: LORazepam 2MG/ML-1ML VIAL IV ONE (01:30)
[2022-10-06] MEDS ORDERED: FUROSEMIDE 20 MG TAB PO ONE (01:30)
[2022-10-06] MEDS ORDERED: ACETAMINOPHEN 325 MG TAB PO PRN (02:00)
[2022-10-06] MEDS ORDERED: DOCUSATE SOD 100 MG CAP PO PRN (02:00)
[2022-10-06] MEDS ORDERED: ONDANSETRON HCL 4 MG/2 ML VIAL IV PRN (02:00)
[2022-10-06] MEDS ORDERED: NITROGLYCERIN 0.4 MG SL TAB SL PRN (02:15)
[2022-10-06] MEDS ORDERED: MORPHINE SULFATE INJ 2 MG/ml SYRG IV PRN (02:15)
[2022-10-06 02:18] LABS: Eosinophils # (auto) 0.1 10 ^3/uL (0-0.8); Hemoglobin 8.8 g/dL (13.5-17.5); Lymphocytes # (auto) 0.5 10 ^3/uL (0.4-5.4); Red Cell Distribution Width 19.5 % (11.8-14.3); White Blood Cell 8.9 10^3/uL (4.4-10.8)
[2022-10-06 02:21] LABS: Basophils # (auto) 0.1 10 ^3/uL (0-0.2); Basophils % (auto) 0.7 % (0.0-2.0); Eosinophils % (auto) 1.1 % (0.0-7.0); Hematocrit 29.2 % (41.0-53.0); Lymphocytes % (auto) 5.9 % (10.0-50.0); Mean Corpuscular Hemoglobin 21.7 pg (28.0-32.0); Mean Corpuscular Hgb Conc. 30.2 g/dL (32.0-36.0); Mean Corpuscular Volume 71.8 fL (80.0-100.0); Monocytes # (auto) 0.6 10 ^3/uL (0-1.3); Monocytes % (auto) 6.3 % (0.0-12.0); Neutrophils # (auto) 7.7 10 ^3/uL (1.6-8.6); Nucleated Red Blood Cells % 0.3 %; Red Blood Cells 4.07 10^6/uL (4.5-5.90)
[2022-10-06 02:44] LABS: Albumin 2.5 g/dL (3.4-5.0); Calcium 7.5 mg/dL (8.5-10.1); Potassium 3.7 mmol/L (3.5-5.1)
[2022-10-06 02:46] LABS: BUN/Creatinine Ratio 27.7 (10.0-20.0)
[2022-10-06 02:49] LABS: Bilirubin, Total 0.7 mg/dL (0.2-1.0); Total Protein 5.6 g/dL (6.4-8.2)
[2022-10-06] MEDS: SODIUM CHLOR 0.9% PF (SALINE LOCK) 10ML VIAL/SYR IV SCH ×3 (05:46→21:27)
[2022-10-06] MEDS: HYDROcodone-ACET 5/325MG TAB PO PRN (05:50)
[2022-10-06] MEDS: LEVOTHYROXINE SODIUM 50 MCG TAB PO SCH (06:35)
[2022-10-06 07:31] VITALS: PULSE 72; RESP 19; O2SAT 98
[2022-10-06 09:24] LABS: Urine Bacteria NONE SEEN /hpf (None Seen); Urine Blood Negative /uL (Negative); Urine Mucus FEW (None Seen); Urine Specific Gravity 1.021 (1.001-1.035); Urine Sperm PRESENT /hpf (None Seen); Urine WBC 1 /hpf (0 - 3)
[2022-10-06] MEDS: CLOPIDOGREL BISULFATE 75 MG TAB PO SCH (09:28)
[2022-10-06] MEDS: FAMOTIDINE (10MG/ML) 2ML VL IV SCH ×2 (09:28→21:27)
[2022-10-06] MEDS: ASPirin 81 mg TAB PO SCH (09:28)
[2022-10-06] MEDS: FUROSEMIDE 40 MG/4 ML VIAL IV SCH (09:37)
[2022-10-06] MEDS ORDERED: APIXABAN 5 MG TAB PO SCH (10:00)
[2022-10-06] MEDS ORDERED: ALPRAZolam 0.5 MG TAB PO ONE (11:15)
[2022-10-06] MEDS: HALOPERIDOL LACTATE 5 MG/ML INJ VIAL IM PRN ×2 (13:13→20:32)
[2022-10-06] MEDS: ATORVASTATIN 20 MG TAB PO SCH (21:28)
[2022-10-06] MEDS ORDERED: ATORVASTATIN 20 MG TAB PO SCH (22:00)
[2022-10-07] VITALS (8 sets, daily range): BP systolic 107–144; BP diastolic 61–79; PULSE 61–86; RESP 12–21; TEMP 97.4–98; O2SAT 92–99
[2022-10-07] MEDS: HYDROcodone-ACET 5/325MG TAB PO PRN (01:16)
[2022-10-07] MEDS: SODIUM CHLOR 0.9% PF (SALINE LOCK) 10ML VIAL/SYR IV SCH (05:39)
[2022-10-07 06:04] LABS: Basophils # (auto) 0 10 ^3/uL (0-0.2); Basophils % (auto) 0.2 % (0.0-2.0); Eosinophils # (auto) 0.1 10 ^3/uL (0-0.8); Eosinophils % (auto) 0.9 % (0.0-7.0); Hematocrit 32.2 % (41.0-53.0); Hemoglobin 9.4 g/dL (13.5-17.5); Lymphocytes # (auto) 0.9 10 ^3/uL (0.4-5.4); Lymphocytes % (auto) 8.5 % (10.0-50.0); Mean Corpuscular Hemoglobin 21.5 pg (28.0-32.0); Mean Corpuscular Volume 74.1 fL (80.0-100.0); Monocytes # (auto) 0.6 10 ^3/uL (0-1.3); Monocytes % (auto) 5.9 % (0.0-12.0); Neutrophils # (auto) 8.9 10 ^3/uL (1.6-8.6); Neutrophils % (auto) 84.5 % (37.0-80.0); Nucleated Red Blood Cells % 0.2 %; Red Blood Cells 4.35 10^6/uL (4.5-5.90); Red Cell Distribution Width 19.6 % (11.8-14.3); White Blood Cell 10.5 10^3/uL (4.4-10.8)
[2022-10-07] MEDS: LEVOTHYROXINE SODIUM 50 MCG TAB PO SCH (06:10)
[2022-10-07 06:25] LABS: Potassium 3.7 mmol/L (3.5-5.1)
[2022-10-07 06:30] LABS: BUN/Creatinine Ratio 26.4 (10.0-20.0); Bilirubin, Total 1.1 mg/dL (0.2-1.0); Calcium 7.9 mg/dL (8.5-10.1); Total Protein 6.5 g/dL (6.4-8.2)
[2022-10-07] MEDS ORDERED: buPROPion HCL 75 MG TAB PO SCH ×2 (07:00)
[2022-10-07] MEDS: FUROSEMIDE 40 MG/4 ML VIAL IV SCH (10:02)
[2022-10-07] MEDS: METOPROLOL SUCCINATE XL 50 MG TAB PO SCH (10:05)
[2022-10-07] MEDS: CLOPIDOGREL BISULFATE 75 MG TAB PO SCH (10:05)
[2022-10-07] MEDS: ASPirin 81 mg TAB PO SCH (10:05)
[2022-10-07] MEDS ORDERED: AMIODARONE HCL 200 MG TAB PO ONE (12:00)
[2022-10-07] MEDS ORDERED: HALOPERIDOL LACTATE 5 MG/ML INJ VIAL IM PRN (12:00)
[2022-10-07] MEDS ORDERED: LORazepam 2MG/ML-1ML VIAL IV PRN (12:30)
[2022-10-07] MEDS ORDERED: MILRINONE 20MG/100ML 100 ML IV SCH (13:45)
[2022-10-07] MEDS: MILRINONE 20MG/100ML 100 ML IV SCH (19:44)
[2022-10-07] MEDS: ATORVASTATIN 20 MG TAB PO SCH (22:05)
[2022-10-08 05:00] VITALS: BP 132/69; PULSE 65; RESP 20; TEMP 97.3; O2SAT 95
[2022-10-08] MEDS: LEVOTHYROXINE SODIUM 50 MCG TAB PO SCH (05:52)
[2022-10-08] MEDS: MILRINONE 20MG/100ML 100 ML IV SCH ×2 (06:01→15:35)
[2022-10-08 08:00] VITALS: PULSE 70
[2022-10-08 09:00] VITALS: BP 108/63; PULSE 94; RESP 18; TEMP 98.1; O2SAT 96
[2022-10-08] MEDS: FUROSEMIDE 40 MG/4 ML VIAL IV SCH (09:25)
[2022-10-08] MEDS: ASPirin 81 mg TAB PO SCH (09:25)
[2022-10-08] MEDS: CLOPIDOGREL BISULFATE 75 MG TAB PO SCH (09:25)
[2022-10-08] MEDS: METOPROLOL SUCCINATE XL 50 MG TAB PO SCH (09:26)
[2022-10-08] MEDS: AMIODARONE HCL 200 MG TAB PO SCH (09:26)
[2022-10-08 09:42] LABS: Potassium 3.4 mmol/L (3.5-5.1)
[2022-10-08 09:47] LABS: BUN/Creatinine Ratio 27.5 (10.0-20.0); Calcium 8.2 mg/dL (8.5-10.1)
[2022-10-08 11:50] LABS: Basophils # (auto) 0 10 ^3/uL (0-0.2); Basophils % (auto) 0.2 % (0.0-2.0); Eosinophils # (auto) 0.1 10 ^3/uL (0-0.8); Eosinophils % (auto) 0.7 % (0.0-7.0); Hematocrit 33.9 % (41.0-53.0); Hemoglobin 9.8 g/dL (13.5-17.5); Lymphocytes # (auto) 0.6 10 ^3/uL (0.4-5.4); Lymphocytes % (auto) 4.9 % (10.0-50.0); Mean Corpuscular Hemoglobin 21.3 pg (28.0-32.0); Mean Corpuscular Volume 73.6 fL (80.0-100.0); Monocytes # (auto) 0.5 10 ^3/uL (0-1.3); Monocytes % (auto) 4.2 % (0.0-12.0); Neutrophils # (auto) 10.3 10 ^3/uL (1.6-8.6); Nucleated Red Blood Cells % 0.3 %; Red Blood Cells 4.62 10^6/uL (4.5-5.90); Red Cell Distribution Width 19.7 % (11.8-14.3); White Blood Cell 11.4 10^3/uL (4.4-10.8)
[2022-10-08] MEDS ORDERED: POTASSIUM CHL 10 Meq TABLET PO ONE (13:15)
[2022-10-08 17:00] VITALS: BP 127/67; PULSE 67; RESP 17; TEMP 98.2; O2SAT 93
[2022-10-08 20:00] VITALS: PULSE 69; RESP 21
[2022-10-08 21:22] VITALS: BP 134/70; PULSE 68; RESP 18; TEMP 97.6; O2SAT 94
[2022-10-08] MEDS: ATORVASTATIN 20 MG TAB PO SCH (21:51)
[2022-10-09] MEDS: MILRINONE 20MG/100ML 100 ML IV SCH (03:13)
[2022-10-09] MEDS: HYDROcodone-ACET 5/325MG TAB PO PRN ×2 (04:16→18:04)
[2022-10-09 04:37] VITALS: BP 118/63; PULSE 67; RESP 18; TEMP 98.2; O2SAT 94
[2022-10-09] MEDS: LEVOTHYROXINE SODIUM 50 MCG TAB PO SCH (06:17)
[2022-10-09 08:00] VITALS: BP 127/61; PULSE 68; PULSE 69; RESP 20; TEMP 97.8; O2SAT 88
[2022-10-09 08:05] LABS: Eosinophils # (auto) 0.1 10 ^3/uL (0-0.8); Lymphocytes # (auto) 0.4 10 ^3/uL (0.4-5.4); White Blood Cell 9.4 10^3/uL (4.4-10.8)
[2022-10-09 08:07] LABS: Basophils # (auto) 0 10 ^3/uL (0-0.2); Basophils % (auto) 0.1 % (0.0-2.0); Hematocrit 31.6 % (41.0-53.0); Hemoglobin 9.6 g/dL (13.5-17.5); Lymphocytes % (auto) 4.6 % (10.0-50.0); Mean Corpuscular Hgb Conc. 30.2 g/dL (32.0-36.0); Mean Corpuscular Volume 72.8 fL (80.0-100.0); Monocytes # (auto) 0.5 10 ^3/uL (0-1.3); Monocytes % (auto) 5.8 % (0.0-12.0); Neutrophils # (auto) 8.4 10 ^3/uL (1.6-8.6); Neutrophils % (auto) 88.5 % (37.0-80.0); Nucleated Red Blood Cells % 0.3 %; Red Blood Cells 4.34 10^6/uL (4.5-5.90); Red Cell Distribution Width 20.1 % (11.8-14.3)
[2022-10-09 08:20] LABS: BUN/Creatinine Ratio 23.7 (10.0-20.0); Potassium 3.5 mmol/L (3.5-5.1)
[2022-10-09] MEDS: AMIODARONE HCL 200 MG TAB PO SCH (09:19)
[2022-10-09] MEDS: FUROSEMIDE 40 MG/4 ML VIAL IV SCH (09:19)
[2022-10-09] MEDS: CLOPIDOGREL BISULFATE 75 MG TAB PO SCH (09:19)
[2022-10-09] MEDS: ASPirin 81 mg TAB PO SCH (09:19)
[2022-10-09] MEDS: METOPROLOL SUCCINATE XL 50 MG TAB PO SCH (09:20)
[2022-10-09] MEDS: SPIRONOLACTONE 25 MG TAB PO SCH (09:31)
[2022-10-09 12:00] VITALS: BP 117/63; PULSE 62; RESP 20; TEMP 97.7; O2SAT 95
[2022-10-09] MEDS ORDERED: ALPRAZolam 0.25 MG TAB PO ONE (13:30)
[2022-10-09] MEDS ORDERED: ZOLPIDEM TARTRATE 5 MG TAB PO PRN (13:30)
[2022-10-09 16:00] VITALS: BP 103/54; PULSE 59; RESP 20; TEMP 97.6; O2SAT 95
[2022-10-09 20:00] VITALS: PULSE 58; RESP 20
[2022-10-09] MEDS: ATORVASTATIN 20 MG TAB PO SCH (21:01)
[2022-10-09 22:00] VITALS: BP 118/56; PULSE 59; RESP 20; TEMP 98.5; O2SAT 96
[2022-10-10 05:00] VITALS: BP 124/61; PULSE 51; RESP 18; TEMP 98; O2SAT 94
[2022-10-10] MEDS: LEVOTHYROXINE SODIUM 50 MCG TAB PO SCH (06:02)
[2022-10-10] MEDS ORDERED: EMPAGLIFLOZIN 10 MG TAB PO SCH (07:00)
[2022-10-10 08:00] VITALS: PULSE 59
[2022-10-10 08:09] VITALS: BP 120/64; PULSE 61; RESP 18; TEMP 97.9; O2SAT 92
[2022-10-10] MEDS: FUROSEMIDE 40 MG/4 ML VIAL IV SCH (10:35)
[2022-10-10] MEDS: ASPirin 81 mg TAB PO SCH (10:35)
[2022-10-10] MEDS: CLOPIDOGREL BISULFATE 75 MG TAB PO SCH (10:35)
[2022-10-10] MEDS: AMIODARONE HCL 200 MG TAB PO SCH (10:36)
[2022-10-10] MEDS: SPIRONOLACTONE 25 MG TAB PO SCH (10:36)
[2022-10-10] MEDS: METOPROLOL SUCCINATE XL 50 MG TAB PO SCH (10:36)
[2022-10-10] MEDS ORDERED: POTA-228 PO (12:24)
[2022-10-10] MEDS ORDERED: FURO1TAB31 PO (12:24)
[2022-10-10] MEDS ORDERED: SPIR25TA PO (12:24)
[2022-10-10 12:39] VITALS: BP 107/46; PULSE 61; RESP 17; TEMP 96.5; O2SAT 96
[2022-10-10 12:41] VITALS: BP 120/64; PULSE 61; TEMP 36.6
== END 2022-10-10 13:33 | disposition home or self-care (01) | DRG 280 ==
LOC: ER 21:39 → EDSEX 21:39 → EDBD 21:39 → TELE 10-06 02:10 → TELE-WESTW 10-06 23:40
PROVIDERS: ADMIT Internal Medicine; ATTEND Internal Medicine
DX: I21.4 Non-ST elevation (NSTEMI) myocardial infarction (principal); G92.8 Other toxic encephalopathy; I50.23 Acute on chronic systolic (congestive) heart failure; J96.00 Acute respiratory failure, unspecified whether with hypoxia or hypercapnia; N17.9 Acute kidney failure, unspecified; I13.0 Hypertensive heart and chronic kidney disease with heart failure and stage 1 through stage 4 chronic kidney disease, or unspecified chronic kidney disease; D64.9 Anemia, unspecified; E88.09 Other disorders of plasma-protein metabolism, not elsewhere classified; E87.6 Hypokalemia; E03.9 Hypothyroidism, unspecified; I08.0 Rheumatic disorders of both mitral and aortic valves; F32.A Depression, unspecified; N18.32 Chronic kidney disease, stage 3b; I25.5 Ischemic cardiomyopathy; I25.2 Old myocardial infarction; Z95.810 Presence of automatic (implantable) cardiac defibrillator; Z79.899 Other long term (current) drug therapy; Z79.01 Long term (current) use of anticoagulants
CPT/HCPCS: 36415; 71045; 80048; 80053; 81001; 83735; 83880; 84443; 84484; 85025; 85379; 87081; 93005; 97110; 97116; 97163; 97530; 99291; C9113; G0378; J2405; J3490; P9047

== ENCOUNTER 2022-10-13 10:49 | Emergency (ER) | payer OTHER ==
[~2022-10-13] VITALS: Ht 152.4 cm; Wt 64.0 kg
[~2022-10-13 10:49] MED LIST changes: -APIX5TAB PO; +FURO1TAB31 PO; +POTA-228 PO; +SPIR25TA PO
[2022-10-13 12:09] LABS: Eosinophils # (auto) 0.1 10 ^3/uL (0-0.8); Lymphocytes # (auto) 0.6 10 ^3/uL (0.4-5.4); Monocytes # (auto) 0.6 10 ^3/uL (0-1.3); Neutrophils # (auto) 9.6 10 ^3/uL (1.6-8.6); Nucleated Red Blood Cells % 0.1 %
[2022-10-13 12:11] LABS: Basophils # (auto) 0 10 ^3/uL (0-0.2); Basophils % (auto) 0.4 % (0.0-2.0); Eosinophils % (auto) 0.9 % (0.0-7.0); Hematocrit 34.2 % (41.0-53.0); Hemoglobin 10.1 g/dL (13.5-17.5); Lymphocytes % (auto) 5.7 % (10.0-50.0); Mean Corpuscular Hemoglobin 21.6 pg (28.0-32.0); Mean Corpuscular Hgb Conc. 29.4 g/dL (32.0-36.0); Mean Corpuscular Volume 73.6 fL (80.0-100.0); Monocytes % (auto) 5.6 % (0.0-12.0); Neutrophils % (auto) 87.4 % (37.0-80.0); Red Blood Cells 4.65 10^6/uL (4.5-5.90); Red Cell Distribution Width 20.8 % (11.8-14.3); White Blood Cell 10.9 10^3/uL (4.4-10.8)
[2022-10-13 12:27] LABS: Albumin 3.1 g/dL (3.4-5.0); Calcium 8.2 mg/dL (8.5-10.1); Potassium 4.5 mmol/L (3.5-5.1)
[2022-10-13 12:31] LABS: BUN/Creatinine Ratio 22.7 (10.0-20.0); Bilirubin, Total 0.8 mg/dL (0.2-1.0); Total Protein 6.6 g/dL (6.4-8.2)
[2022-10-13 16:22] VITALS: BP 100/52; PULSE 60; RESP 20; O2SAT 98
== END 2022-10-13 18:39 | disposition home or self-care (01) ==
LOC: ER 10:49 → EDBD 10:49 → ER 18:33
DX: T82.9XXA Unspecified complication of cardiac and vascular prosthetic device, implant and graft, initial encounter (principal); I48.91 Unspecified atrial fibrillation; I25.10 Atherosclerotic heart disease of native coronary artery without angina pectoris; I11.0 Hypertensive heart disease with heart failure; I50.9 Heart failure, unspecified; F32.9 Major depressive disorder, single episode, unspecified; Z90.89 Acquired absence of other organs
CPT/HCPCS: 36415; 80053; 85025; 93005

== ENCOUNTER 2022-10-29 06:31 | Inpatient (IN) | payer OTHER ==
[~2022-10-29] VITALS: Ht 182.9 cm; Wt 90.0 kg
[2022-10-29] MEDS ORDERED: SODIUM CHLORIDE 0.9% 1,000 ML IV ONE ×2 (06:45→10:15)
[2022-10-29 07:40] LABS: Albumin 3.2 g/dL (3.4-5.0); Calcium 8.1 mg/dL (8.5-10.1); Potassium 4.7 mmol/L (3.5-5.1)
[2022-10-29 07:43] LABS: BUN/Creatinine Ratio 23.4 (10.0-20.0); Bilirubin, Total 0.4 mg/dL (0.2-1.0); Total Protein 6.5 g/dL (6.4-8.2)
[2022-10-29 08:18] LABS: Eosinophils # (auto) 0.2 10 ^3/uL (0-0.8); Hemoglobin 10.1 g/dL (13.5-17.5); Lymphocytes # (auto) 0.7 10 ^3/uL (0.4-5.4); Lymphocytes % (auto) 12.7 % (10.0-50.0); Monocytes # (auto) 0.5 10 ^3/uL (0-1.3)
[2022-10-29 08:20] LABS: Basophils # (auto) 0.1 10 ^3/uL (0-0.2); Eosinophils % (auto) 2.8 % (0.0-7.0); Hematocrit 34.4 % (41.0-53.0); Mean Corpuscular Hemoglobin 21.8 pg (28.0-32.0); Mean Corpuscular Hgb Conc. 29.2 g/dL (32.0-36.0); Mean Corpuscular Volume 74.6 fL (80.0-100.0); Monocytes % (auto) 8.2 % (0.0-12.0); Neutrophils # (auto) 4.5 10 ^3/uL (1.6-8.6); Neutrophils % (auto) 75.3 % (37.0-80.0); Nucleated Red Blood Cells % 0.4 %; Red Blood Cells 4.62 10^6/uL (4.5-5.90); White Blood Cell 5.9 10^3/uL (4.4-10.8)
[2022-10-29 08:22] LABS: Red Cell Distribution Width 21.3 % (11.8-14.3)
[2022-10-29 09:14] LABS: Urine Bacteria FEW /hpf (None Seen); Urine Blood Negative /uL (Negative); Urine Clarity Clear (Clear); Urine Color Yellow (Yellow); Urine Hyaline Cast FEW /lpf (0 - 2); Urine Protein, UAD Negative (Negative); Urine Specific Gravity 1.021 (1.001-1.035); Urine Urobilinogen Normal (Negative); Urine WBC 1 /hpf (0 - 3)
[2022-10-29 09:17] VITALS: PULSE 60; RESP 16; O2SAT 100
[2022-10-29] MEDS ORDERED: MORPHINE SULFATE INJ 2 MG/ml SYRG IV PRN (09:45)
[2022-10-29] MEDS ORDERED: NITROGLYCERIN 0.4 MG SL TAB SL PRN (09:45)
[2022-10-29] MEDS ORDERED: PATIENTS OWN MEDICATION (Potassium Chloride (Potassium Chloride ER) 10 MEQ) PO SCH (10:00)
[2022-10-29] MEDS ORDERED: ONDANSETRON HCL 4 MG/2 ML VIAL IV PRN (10:15)
[2022-10-29] MEDS: ASPirin-EC 81 mg tab PO SCH (10:49)
[2022-10-29] MEDS: SPIRONOLACTONE 25 MG TAB PO SCH (10:50)
[2022-10-29] MEDS: CITALOPRAM HYDROBR 20 MG TAB PO SCH (10:50)
[2022-10-29] MEDS: ALLOPURINOL 100 MG TAB PO SCH (10:50)
[2022-10-29] MEDS: CLOPIDOGREL BISULFATE 75 MG TAB NG SCH (10:50)
[2022-10-29 12:36] LABS: Platelet Estimate Adequate
[2022-10-29 12:38] LABS: Ovalocytes MODERATE
[2022-10-29 12:39] LABS: Anisocytosis Slight; Hypochromia Moderate
[2022-10-29 13:16] LABS: Alcohol, Urine < 3.0 mg/dL (0-10)
[2022-10-29 13:26] LABS: Amphetamine Screen, Urine NEGATIVE (NEGATIVE); Barbiturate Scree,Urine NEGATIVE (NEGATIVE); Cannabinoid Screen, Urine NEGATIVE (NEGATIVE); Cocaine Screen, Urine NEGATIVE (NEGATIVE); Opiate Scree,Urine NEGATIVE (NEGATIVE); Phencyclidine Screen, Urine NEGATIVE (NEGATIVE)
[2022-10-29 14:00] LABS: Benzodiazephine Screen, Urine POSITIVE (NEGATIVE)
[2022-10-29] MEDS ORDERED: buPROPion HCL 100 MG TAB PO SCH (14:00)
[2022-10-29] MEDS: ACETAMINOPHEN 500 MG TAB PO PRN (17:34)
[2022-10-29] MEDS ORDERED: buPROPion HCL 75 MG TAB PO SCH (19:00)
[2022-10-29 19:40] VITALS: PULSE 60; RESP 21; O2SAT 97
[2022-10-29] MEDS ORDERED: ATORVASTATIN 20 MG TAB PO SCH (22:00)
[2022-10-29 23:58] VITALS: BP 115/63; PULSE 59; RESP 17; TEMP 97.8
[2022-10-30 00:19] VITALS: PULSE 59; RESP 17; O2SAT 95
[2022-10-30 05:00] VITALS: BP 120/69; PULSE 60; RESP 17; TEMP 97.3; O2SAT 98
[2022-10-30 05:54] LABS: Basophils # (auto) 0.1 10 ^3/uL (0-0.2); Basophils % (auto) 0.8 % (0.0-2.0); Eosinophils # (auto) 0.1 10 ^3/uL (0-0.8); Hemoglobin 10.3 g/dL (13.5-17.5); Lymphocytes # (auto) 0.9 10 ^3/uL (0.4-5.4); Mean Corpuscular Hgb Conc. 29.2 g/dL (32.0-36.0); Monocytes # (auto) 0.6 10 ^3/uL (0-1.3); White Blood Cell 6.3 10^3/uL (4.4-10.8)
[2022-10-30 05:58] LABS: Hematocrit 35.4 % (41.0-53.0); Lymphocytes % (auto) 13.5 % (10.0-50.0); Mean Corpuscular Volume 75.5 fL (80.0-100.0); Monocytes % (auto) 9.2 % (0.0-12.0); Neutrophils # (auto) 4.7 10 ^3/uL (1.6-8.6); Neutrophils % (auto) 74.5 % (37.0-80.0); Nucleated Red Blood Cells % 0.3 %; Red Blood Cells 4.69 10^6/uL (4.5-5.90)
[2022-10-30 06:01] LABS: Red Cell Distribution Width 21.8 % (11.8-14.3)
[2022-10-30 06:22] LABS: Potassium 4.9 mmol/L (3.5-5.1)
[2022-10-30 06:27] LABS: Albumin 3.1 g/dL (3.4-5.0); BUN/Creatinine Ratio 23.9 (10.0-20.0); Bilirubin, Total 0.6 mg/dL (0.2-1.0); Calcium 8.4 mg/dL (8.5-10.1); Total Protein 6.8 g/dL (6.4-8.2)
[2022-10-30] MEDS: ACETAMINOPHEN 500 MG TAB PO PRN (06:36)
[2022-10-30] MEDS ORDERED: FUROSEMIDE 40 MG TAB PO SCH (07:00)
[2022-10-30] MEDS ORDERED: BUPROPION HCL PO SCH (07:00)
[2022-10-30] MEDS ORDERED: LEVOTHYROXINE SODIUM 50 MCG TAB PO SCH (07:00)
[2022-10-30] MEDS ORDERED: AMIODARONE HCL 200 MG TAB PO SCH (07:00)
[2022-10-30 09:00] VITALS: BP 110/65; PULSE 60; RESP 17; TEMP 97.7; O2SAT 98
[2022-10-30] MEDS: ASPirin-EC 81 mg tab PO SCH (09:58)
[2022-10-30] MEDS: CLOPIDOGREL BISULFATE 75 MG TAB NG SCH (09:59)
[2022-10-30] MEDS ORDERED: POTASSIUM CHL 10 Meq TABLET PO SCH (10:00)
[2022-10-30] MEDS: CITALOPRAM HYDROBR 20 MG TAB PO SCH (10:00)
[2022-10-30] MEDS: ALLOPURINOL 100 MG TAB PO SCH (10:00)
[2022-10-30] MEDS ORDERED: buPROPion HCL 100 MG TAB PO ONE (10:00)
[2022-10-30] MEDS: SPIRONOLACTONE 25 MG TAB PO SCH (10:01)
[2022-10-30] MEDS ORDERED: TEMA15CA5 PO (11:57)
[2022-10-30 12:00] VITALS: BP 119/61; PULSE 63; RESP 20; TEMP 98; O2SAT 98
[2022-10-30 13:08] VITALS: BP 119/61; PULSE 63; RESP 20; TEMP 98; O2SAT 98
== END 2022-10-30 16:11 | disposition home or self-care (01) | DRG 314 ==
LOC: ER 06:31 → EDBD 06:31 → TELE 09:41 → TELE-WESTW 23:33 → TELE-EAST 10-30 08:45
PROVIDERS: ADMIT Internal Medicine; ATTEND Internal Medicine
DX: T82.128A Displacement of other cardiac electronic device, initial encounter (principal); N17.0 Acute kidney failure with tubular necrosis; G45.9 Transient cerebral ischemic attack, unspecified; I24.9 Acute ischemic heart disease, unspecified; E44.1 Mild protein-calorie malnutrition; I50.22 Chronic systolic (congestive) heart failure; I13.0 Hypertensive heart and chronic kidney disease with heart failure and stage 1 through stage 4 chronic kidney disease, or unspecified chronic kidney disease; I48.91 Unspecified atrial fibrillation; I25.10 Atherosclerotic heart disease of native coronary artery without angina pectoris; D50.9 Iron deficiency anemia, unspecified; E89.0 Postprocedural hypothyroidism; Y83.8 Other surgical procedures as the cause of abnormal reaction of the patient, or of later complication, without mention of misadventure at the time of the procedure; N18.9 Chronic kidney disease, unspecified; R00.1 Bradycardia, unspecified; M10.9 Gout, unspecified; F32.A Depression, unspecified; I25.2 Old myocardial infarction; Z79.01 Long term (current) use of anticoagulants; Z95.810 Presence of automatic (implantable) cardiac defibrillator; Z68.26 Body mass index [BMI] 26.0-26.9, adult; Z82.49 Family history of ischemic heart disease and other diseases of the circulatory system; Y92.89 Other specified places as the place of occurrence of the external cause
CPT/HCPCS: 36415; 70450; 71045; 80053; 80162; 80307; 81001; 83735; 83880; 84484; 85025; 96360; 96361; 97163; G0378

== ENCOUNTER → 2022-11-13 | Outpatient (CLI) | payer OTHER ==
[~2022-11-13] MED LIST changes: +TEMA15CA5 PO
== END | disposition home or self-care (01) ==
LOC: Rad HDHVI 08:06
PROVIDERS: ATTEND Internal Medicine Cardiovascular Disease
DX: I08.8 Other rheumatic multiple valve diseases (principal); I11.9 Hypertensive heart disease without heart failure; I27.21 Secondary pulmonary arterial hypertension; E78.5 Hyperlipidemia, unspecified
CPT/HCPCS: 93306

== ENCOUNTER → 2022-12-04 | Outpatient (CLI) | payer OTHER ==
[2022-12-04 12:13] LABS: Chloride 104 mmol/L (98-107); Potassium 5.3 mmol/L (3.5-5.1); Sodium 137 mmol/L (136-145)
[2022-12-04 12:14] LABS: Anion Gap 8 (5-15); Calcium 9.6 mg/dL (8.7-10.4); Carbon Dioxide 25 mmol/L (20-30)
[2022-12-04 12:19] LABS: BUN/Creatinine Ratio 19.4 (10.0-20.0); Blood Urea Nitrogen 35 mg/dL (9-23); Glucose 104 mg/dL (74-106)
== END | disposition home or self-care (01) ==
LOC: LAB 11:21
PROVIDERS: ATTEND Internal Medicine
DX: E03.9 Hypothyroidism, unspecified (principal)
CPT/HCPCS: 36415; 80048; 84439; 84443